=== PATIENT | male | born 2000 | race Caucasian/White ===

== ENCOUNTER 2018-08-09 07:23 | Emergency (ER) | payer OTHER ==
[~2018-08-09] VITALS: Ht 185.4 cm; Wt 88.6 kg
[2018-08-09] MEDS ORDERED: [UNRECOGNIZED DRUG - REMARK] (07:29)
[2018-08-09] MEDS ORDERED: EMLA CREAM 5GM (LIDOCAINE/PRILOCAINE) TOP ONE (07:45)
--- NOTE | 2018-08-09 08:12 | REP ---
Head CT without contrast: History: Trauma. Laceration of the top of the head. Comparison study: No comparison study. CT findings: Bone window settings demonstrate an intact bony calvarium. There is no evidence of skull fracture or incidental bony calvarial lesion. The visualized paranasal sinuses appear clear. No intraorbital abnormality is seen. On soft tissue window setting images; the lateral, third, and fourth ventricles are normal in size and position. Lomeli-white differentiation pattern is normal above and below the tentorium. There are is no evidence of intracranial hemorrhage. No mass, edema, infarction, or midline shift is seen. No extra-axial fluid collection is appreciated. Impression: Negative noncontrast head CT. Electronically Signed by Kj Bowen MD 08/09/2018 08:10 A
[2018-08-09] MEDS ORDERED: ONDA4TAB6 PO (08:42)
[2018-08-09] MEDS ORDERED: IBUP-1022 PO (08:42)
[2018-08-09] MEDS ORDERED: ONDANSETRON 4 MG ORAL DISINTEGRATING TAB (Q0162 PER 1MG) PO ONE (08:45)
[2018-08-09] MEDS ORDERED: ACETAMINOPHEN 325 MG TAB PO ONE (08:45)
[2018-08-09] MEDS ORDERED: IBUPROFEN 600 MG TAB PO ONE (08:45)
[2018-08-09 08:47] VITALS: BP 133/82
== END 2018-08-09 09:03 | disposition home or self-care (01) ==
LOC: M ED 07:23
DX: S06.0X0A Concussion without loss of consciousness, initial encounter (principal); S01.01XA Laceration without foreign body of scalp, initial encounter; W22.8XXA Striking against or struck by other objects, initial encounter; Y92.89 Other specified places as the place of occurrence of the external cause; Y99.0 Civilian activity done for income or pay
CPT/HCPCS: 12001; 70450; 99283; Q0162